=== PATIENT | male | born 1960 | race Caucasian/White ===

== ENCOUNTER 2018-05-07 11:01 | Inpatient (IN) | payer OTHER ==
[2018-05-07 13:09] VITALS: BMI 32.8
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
[2018-05-07] MEDS ORDERED: LOPERAMIDE HCL 2 MG CAPSULE PO PRN (16:48)
[2018-05-07] MEDS ORDERED: MAG HYDROX/AL HYDROX/SIMETH 30 ML UNIT-DOSE CUP PO PRN (16:48)
[2018-05-07] MEDS ORDERED: MAGNESIUM HYDROX 2400MG/30ML ORAL SUSPENSION 30 ML CUP PO PRN (16:48)
[2018-05-07] MEDS ORDERED: NICOTINE POLACRILEX 2 MG GUM BC PRN (16:48)
[2018-05-07] MEDS ORDERED: ACETAMINOPHEN 325 MG TABLET (FP) PO PRN (16:48)
[2018-05-07] MEDS ORDERED: chlordiazePOXIDE HCL 25 MG CAPSULE PO PRN (16:48)
[2018-05-07] MEDS ORDERED: IBUPROFEN 400 MG TABLET (FP) PO PRN (16:48)
[2018-05-07] MEDS ORDERED: guaiFENesin/D-METHORPHAN HB 10 ML UNIT-DOSE CUPS PO PRN (16:48)
[2018-05-07] MEDS ORDERED: P-EPHED 60MG/TRIPROLIDI 2.5MG TABLET PO PRN (16:48)
[2018-05-07] MEDS ORDERED: MENTHOL/PHENOL 1 EACH UD MM PRN (16:48)
[2018-05-07] MEDS ORDERED: MAGNESIUM CITRATE 300 ML BOTTLE PO PRN (16:48)
[2018-05-07] MEDS ORDERED: chlordiazePOXIDE HCL 25 MG CAPSULE PO ONE (17:45)
[2018-05-07] MEDS ORDERED: MELATONIN 5 MG TABLETS PO PRN (22:00)
[2018-05-07] MEDS: THIAMINE HCL 100 MG TABLET (FP) PO SCH (22:32)
[2018-05-07] MEDS: chlordiazePOXIDE HCL 25 MG CAPSULE PO SCH (22:32)
[2018-05-07] MEDS: BACITRACIN 0.9 GM PACKET TP SCH (22:32)
[2018-05-08 02:06] LABS: URINE APPEARANCE CLEAR; URINE BILIRUBIN NEGATIVE (<2.0 mg/dL); URINE COLOR AMBER; URINE GLUCOSE (UA) NEGATIVE (NEGATIVE); URINE KETONE NEGATIVE (NEGATIVE); URINE LEUK ESTERASE NEGATIVE (NEGATIVE); URINE NITRITE NEGATIVE (NEGATIVE); URINE PROTEIN NEGATIVE (NEGATIVE); URINE UROBILINOGEN 4.0 E.U/dl mg/dL (0.2-1.0)
[2018-05-08] MEDS: chlordiazePOXIDE HCL 25 MG CAPSULE PO SCH ×4 (05:40→22:09)
[2018-05-08] MEDS: PRENATAL VITAMINS W/ FOLIC ACID TABLET (FP) PO SCH (10:19)
[2018-05-08] MEDS: NICOTINE 21 MG/24 HOURS TOPICAL PATCH TD SCH (10:22)
[2018-05-08] MEDS: BACITRACIN 0.9 GM PACKET TP SCH ×2 (10:22→22:09)
--- NOTE | 2018-05-08 10:28 | EKG ---
Test Reason : Blood Pressure : / mmHG Vent. Rate : 071 BPM Atrial Rate : 071 BPM P-R Int : 164 ms QRS Dur : 096 ms QT Int : 436 ms P-R-T Axes : 032 054 044 degrees QTc Int : 473 ms NORMAL SINUS RHYTHM NORMAL ECG NO PREVIOUS ECGS AVAILABLE Confirmed by LONI KERN, CHRIS ([id number]) on 05/08/2018 10:28:33 AM Referred By: Confirmed By:CHRIS IVEY MD
[2018-05-08 11:02] LABS: HEMATOCRIT 36.1 % (35.4-49); HEMOGLOBIN 12.1 GM/dL (11.7-16.9); MCH 29.8 pg (25.7-33.7); MCHC 33.6 g/dl (32.0-35.9); MEAN CELL VOLUME 88.9 fl (80-96); MEAN PLT VOLUME 9.7 fl (7.5-11.1); PLATELET COUNT 57 K/MM3 (134-434); RBC 4.07 M/mm3 (4.00-5.60); RDW 14.8 % (11.9-15.9); WHITE BLOOD COUNT 3.3 K/mm3 (4.0-10.0)
[2018-05-08 11:05] LABS: ALBUMIN 2.9 g/dl (3.4-5.0); ANION GAP 8 MMOL/L (8-16); BLOOD UREA NITROGEN 12 mg/dL (7-18); CHLORIDE 108 mmol/L (98-107); CO2 26 mmol/L (21-32); GLUCOSE,RANDOM 113 mg/dL (74-106); POTASSIUM 4.2 mmol/L (3.5-5.1); SGOT/AST 43 U/L (15-37); SGPT/ALT 33 U/L (12-78); SODIUM 142 mmol/L (136-145)
[2018-05-08 11:07] LABS: ALK PHOS 101 U/L (45-117); BILIRUBIN,TOTAL 1.1 mg/dL (0.2-1.0); CREATININE 0.7 mg/dL (0.7-1.3); TOT PROT 6.1 g/dl (6.4-8.2)
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
--- NOTE | 2018-05-08 14:40 | PN ---
S Progress Note (SOAP) Subjective: Patient c/o "chest pain" associated with eating. Substernal without radiation. Relieved after he vomitied. No h/o cardiac disease. VSS. No SOB. [place] like food "getting stuck," Vital Signs - 24 hr 05/07/18 05/07/18 05/08/18 19:01 21:33 00:30 Temperature 98.1 F 99.3 F Pulse Rate 67 79 Respiratory 20 18 18 Rate Blood Pressure 132/72 139/68 05/08/18 05/08/18 05/08/18 03:30 06:09 06:30 Temperature 97.7 F Pulse Rate 70 Respiratory 18 18 18 Rate Blood Pressure 115/63 05/08/18 05/08/18 09:17 13:23 Temperature 97 F L 97.5 F L Pulse Rate 65 66 Respiratory 20 18 Rate Blood Pressure 118/66 100/53 VSS Objective: 05/08/18 14:38 Appears in no distress. Sitting in a chair by nurses station. Breathing is unlabored. Vital Signs - 24 hr 05/07/18 05/07/18 05/08/18 19:01 21:33 00:30 Temperature 98.1 F 99.3 F Pulse Rate 67 79 Respiratory 20 18 18 Rate Blood Pressure 132/72 139/68 05/08/18 05/08/18 05/08/18 03:30 06:09 06:30 Temperature 97.7 F Pulse Rate 70 Respiratory 18 18 18 Rate Blood Pressure 115/63 05/08/18 05/08/18 09:17 13:23 Temperature 97 F L 97.5 F L Pulse Rate 65 66 Respiratory 20 18 Rate Blood Pressure 118/66 100/53 Assessment: 05/08/18 14:39 Chest pain that is GI in origon. Given Mylanta and "I already feel normal." Reports not having eaten much in last weeks secondary to a drug/alcohol binge. Plan: Continue to monitor VS. Keep paitient seated near nursing station for another hour to monitor closely. Call MD/CHEMICAL TANK WORKER if any acute change.
[2018-05-08] MEDS: hydrOXYzine PAMOATE 50 MG CAPSULE (FP) PO PRN (17:11)
--- NOTE | 2018-05-08 21:32 | PN ---
[facility] Progress Note Note: psychiatrist donor relations officer: As per nursing report patient started on medications Ambien 5mg po prn qhs for insomnia Wellbutrin xl 150 mb poqd
[2018-05-08] MEDS: ZOLPIDEM TARTRATE 5 MG TABLET PO PRN (22:09)
[2018-05-08] MEDS: THIAMINE HCL 100 MG TABLET (FP) PO SCH (22:09)
[2018-05-09] MEDS: chlordiazePOXIDE HCL 25 MG CAPSULE PO SCH ×3 (06:44→17:11)
[2018-05-09] MEDS ORDERED: ONDANSETRON *ODT* 4 MG TABLET SL PRN (10:17)
--- NOTE | 2018-05-09 10:21 | PN ---
[facility] CIWA - CIWA Score Nausea/Vomitin Muscle Tremors: 2 Anxiety: 2 Agitation: 3 Paroxysmal Sweats: 2 Orientation: 0-Oriented Tacttile Disturbances: 0-None Auditory Disturbances: 0-None Visual Disturbances: 0-None Headache: 0-None Present CIWA-Ar Total Score: 12 [facility] Progress Note (SOAP) Subjective: pt states that he has been using heroin in addition to alcohol- urine tox pos only for benzo. Pt is on alcohol detox protocol. pt c/o abd pain, diarrhea, tremors Obj: Vital Signs - 24 hr 05/08/18 05/08/18 05/08/18 13:23 17:17 21:02 Temperature 97.5 F L 97.8 F 98.2 F Pulse Rate 66 67 75 Respiratory 18 18 18 Rate Blood Pressure 100/53 116/63 120/66 05/09/18 05/09/18 05/09/18 00:30 03:30 06:17 Temperature 97.4 F L Pulse Rate 66 Respiratory 18 18 18 Rate Blood Pressure 106/62 Ass/Plan: continue alcohol detox protocol. clonidine and zofran ordered prn
[2018-05-09] MEDS: NICOTINE 21 MG/24 HOURS TOPICAL PATCH TD SCH (12:02)
[2018-05-09] MEDS: BACITRACIN 0.9 GM PACKET TP SCH ×2 (12:02→22:11)
[2018-05-09] MEDS: cloNIDine HCL 0.1 MG TABLET PO SCH ×2 (12:03→22:11)
[2018-05-09] MEDS: PRENATAL VITAMINS W/ FOLIC ACID TABLET (FP) PO SCH (12:03)
[2018-05-09] MEDS: hydrOXYzine PAMOATE 50 MG CAPSULE (FP) PO PRN (17:14)
[2018-05-09] MEDS: ZOLPIDEM TARTRATE 5 MG TABLET PO PRN (22:11)
[2018-05-09] MEDS: THIAMINE HCL 100 MG TABLET (FP) PO SCH (22:11)
[2018-05-09] MEDS: chlordiazePOXIDE 5 MG CAPSULE PO SCH (22:11)
[2018-05-10] MEDS: chlordiazePOXIDE 5 MG CAPSULE PO SCH ×3 (05:53→17:17)
--- NOTE | 2018-05-10 09:50 | PN ---
S Progress Note (SOAP) Subjective: pt states he id fine, scheduled to go home tomorrow, but thinks he may need to leave today O: Vital Signs - 24 hr 05/09/18 05/09/18 05/09/18 11:19 18:19 22:24 Temperature 97.4 F L 97.6 F 98 F Pulse Rate 80 68 71 Respiratory 16 18 18 Rate Blood Pressure 122/70 133/73 127/65 05/10/18 05/10/18 05/10/18 00:30 03:30 06:00 Temperature 97.8 F Pulse Rate 66 Respiratory 18 18 18 Rate Blood Pressure 102/59 Laboratory Tests 05/07/18 05/08/18 05/08/18 07:00 00:45 07:00 WBC 3.3 L RBC 4.07 Hgb 12.1 Hct 36.1 MCV 88.9 MCH 29.8 MCHC 33.6 RDW 14.8 Plt Count 57 L MPV 9.7 Sodium Potassium Chloride Carbon Dioxide Anion Gap BUN Creatinine Creat Clearance w eGFR POC Glucometer Random Glucose Calcium Total Bilirubin AST ALT Alkaline Phosphatase Total Protein Albumin Urine Color Pamela Urine Appearance Clear Urine pH 6.0 Ur Specific [place] 1.020 Urine Protein Negative Urine Glucose (UA) Negative Urine Ketones Negative Urine Blood Negative Urine Nitrite Negative Urine Bilirubin Negative Urine Urobilinogen 4.0 e.u/dl Ur Leukocyte Esterase Negative RPR Titer HIV 1&2 Antibody Screen Negative HIV P24 Antigen Negative 05/08/18 05/08/18 05/09/18 07:00 07:00 06:43 WBC RBC Hgb Hct MCV MCH MCHC RDW Plt Count MPV Sodium 142 Potassium 4.2 Chloride 108 H Carbon Dioxide 26 Anion Gap 8 BUN 12 Creatinine 0.7 Creat Clearance w eGFR > 60 POC Glucometer 121 Random Glucose 113 H Calcium 8.0 L Total Bilirubin 1.1 H AST 43 H ALT 33 Alkaline Phosphatase 101 Total Protein 6.1 L Albumin 2.9 L Urine Color Urine Appearance Urine pH Ur Specific [place] Urine Protein Urine Glucose (UA) Urine Ketones Urine Blood Urine Nitrite Urine Bilirubin Urine Urobilinogen Ur Leukocyte Esterase RPR Titer Nonreactive HIV 1&2 Antibody Screen HIV P24 Antigen 05/10/18 05:37 WBC RBC Hgb Hct MCV MCH MCHC RDW Plt Count MPV Sodium Potassium Chloride Carbon Dioxide Anion Gap BUN Creatinine Creat Clearance w eGFR POC Glucometer 105 Random Glucose Calcium Total Bilirubin AST ALT Alkaline Phosphatase Total Protein Albumin Urine Color Urine Appearance Urine pH Ur Specific [place] Urine Protein Urine Glucose (UA) Urine Ketones Urine Blood Urine Nitrite Urine Bilirubin Urine Urobilinogen Ur Leukocyte Esterase RPR Titer HIV 1&2 Antibody Screen HIV P24 Antigen Active Medications Acetaminophen (Tylenol -) 650 mg PO Q4H PRN PRN Reason: FEVER Al Hydroxide/Mg Hydroxide (Mylanta Oral Suspension -) 30 ml PO Q6H PRN PRN Reason: DYSPEPSIA Last Admin: 05/08/18 14:20 Dose: 30 ml Bacitracin (Bacitracin -) 0.9 gm TP BID [facility] Last Admin: 05/09/18 22:11 Dose: 0.9 gm Bupropion HCl (Wellbutrin Xl -) 150 mg PO DAILY [facility] Last Admin: 05/09/18 12:03 Dose: Not Given Chlordiazepoxide HCl (Librium -) 15 mg PO [id number] [facility] Stop: 05/10/18 17:01 Last Admin: 05/10/18 05:53 Dose: Not Given Chlordiazepoxide HCl (Librium -) 25 mg PO Q4H PRN PRN Reason: WITHDRAWAL(CONT SUBST) Stop: 05/10/18 16:47 Chlordiazepoxide HCl (Librium -) 10 mg PO [id number] [facility] Stop: 05/11/18 17:01 Clonidine (Catapres -) 0.1 mg PO BID [facility] Last Admin: 05/09/18 22:11 Dose: 0.1 mg Eucalyptus/Menthol/Phenol/Sorbitol (Cepastat Lozenge -) 1 each MM Q4H PRN PRN Reason: SORE THROAT Guaifenesin (Robitussin Dm -) 10 ml PO Q6H PRN PRN Reason: COUGH Hydroxyzine Pamoate (Vistaril -) 50 mg PO Q4H PRN PRN Reason: AGITATION Last Admin: 05/09/18 17:14 Dose: 50 mg Ibuprofen (Motrin -) 400 mg PO Q6H PRN PRN Reason: PAIN LEVEL 4-6 Loperamide HCl (Imodium -) 4 mg PO Q6H PRN PRN Reason: DIARRHEA Magnesium Citrate (Citroma -) 300 ml PO Q48H PRN PRN Reason: CONSTIPATION Magnesium Hydroxide (Milk Of Magnesia -) 30 ml PO DAILY PRN PRN Reason: CONSTIPATION Melatonin (Melatonin) 5 mg PO HS PRN PRN Reason: INSOMNIA Last Admin: 05/07/18 22:33 Dose: 5 mg Nicotine (Nicoderm Patch -) 21 mg TD DAILY [facility] Last Admin: 05/09/18 12:02 Dose: Not Given Nicotine Polacrilex (Nicorette Gum -) 2 mg BC Q2H PRN PRN Reason: NICOTINE REPLACEMENT RX Last Admin: 05/09/18 17:16 Dose: 2 mg Ondansetron HCl (Zofran Odt -) 4 mg SL Q6H PRN PRN Reason: NAUSEA AND/OR VOMITING Multivit/Folic Acid/Iron ( Vitamins ([facility]) -) 1 tab PO DAILY [facility] Last Admin: 05/09/18 12:03 Dose: Not Given Pseudoephedrine/Triprolidine (Actifed -) 1 combo PO TID PRN PRN Reason: NASAL CONGESTION Thiamine HCl (Vitamin B1 -) 100 mg PO HS [facility] Last Admin: 05/09/18 22:11 Dose: 100 mg Zolpidem Tartrate (Ambien -) 5 mg PO HS PRN PRN Reason: INSOMNIA Last Admin: 05/09/18 22:11 Dose: 5 mg A/p: continue detox protocol- pt doing well.
[2018-05-10] MEDS: cloNIDine HCL 0.1 MG TABLET PO SCH ×2 (10:33→22:12)
[2018-05-10] MEDS: PRENATAL VITAMINS W/ FOLIC ACID TABLET (FP) PO SCH (10:33)
[2018-05-10] MEDS: BACITRACIN 0.9 GM PACKET TP SCH ×2 (10:33→22:12)
[2018-05-10] MEDS: NICOTINE 21 MG/24 HOURS TOPICAL PATCH TD SCH (10:33)
[2018-05-10] MEDS: THIAMINE HCL 100 MG TABLET (FP) PO SCH (22:12)
[2018-05-10] MEDS: chlordiazePOXIDE HCL 10 MG CAPSULE PO SCH (22:34)
[2018-05-10] MEDS: hydrOXYzine PAMOATE 50 MG CAPSULE (FP) PO PRN (23:20)
--- NOTE | 2018-05-10 23:23 | PN ---
[facility] Progress Note Note: Psychiatrist vibration technician : As per mursing report patient missed today's Wellbutrin in am and now asking for his daily Wellbutrin order Patient was informed Wellbutrin at bed time januarysrupt his sleep steveniene, patient agrees to take Wellbutrin in am., taking Vistaril 50mg po prn instead.
[2018-05-11 06:04] VITALS: BP 99/63; PULSE 68; TEMP 97.4
[2018-05-11] MEDS: chlordiazePOXIDE HCL 10 MG CAPSULE PO SCH (06:14)
[2018-05-11] MEDS ORDERED: buPROPion HCL 75 MG TABLET PO ONE (07:00)
--- NOTE | 2018-05-11 13:38 | PN ---
[facility] Progress Note Note: PT DISCHARGED EARLIER THIS MORNING. DETOX COMPLETED.
--- NOTE | 2018-05-11 13:40 | DS ---
[facility] Detox Discharge Summary Admission Date: 05/07/18 Discharge Date: 05/11/18 - History Present History: Alcohol Dependence Additional Comments: DETOX COMPLETED Pertinent Past History: PLEASE SEE DX BELOW - Physical Exam Results Vital Signs: Vital Signs Temperature 97.4 F L 05/11/18 06:03 Pulse Rate 68 05/11/18 06:03 Respiratory Rate 05/11/18 06:03 Blood Pressure 99/63 05/11/18 06:03 O2 Sat by Pulse Oximetry (%) Pertinent Admission Physical Exam Findings: WITHDRAWAL SX - Treatment Hospital Course: Detox Protocol Followed, Detoxed Safely, Responded well, Discharged Condition Good - Medication Discharge Medications: Ambulatory Orders Bupropion HCl [Wellbutrin Xl -] 150 mg PO DAILY 05/07/18 hydrOXYzine PAMOATE [Vistaril -] 50 mg PO HS 05/07/18 - Diagnosis (1) Alcohol dependence with uncomplicated withdrawal Status: Acute (2) Nicotine dependence, uncomplicated Status: Chronic Qualifiers: Nicotine product type: cigarettes Qualified Code(s): F17.210 - Nicotine dependence, cigarettes, uncomplicated - AMA Did Patient Leave Against Medical Advice: No
== END 2018-05-11 06:20 | disposition home or self-care (01) | DRG 773 ==
LOC: YASAS 11:01 → Y3N 17:30
PROC: HZ2ZZZZ Detoxification Services for Substance Abuse Treatment (ICD-10-PCS; principal; 2018-05-07)
DX: F10.230 Alcohol dependence with withdrawal, uncomplicated (principal); F11.20 Opioid dependence, uncomplicated; F17.210 Nicotine dependence, cigarettes, uncomplicated; F19.24 Other psychoactive substance dependence with psychoactive substance-induced mood disorder; F43.10 Post-traumatic stress disorder, unspecified; F33.9 Major depressive disorder, recurrent, unspecified; G47.00 Insomnia, unspecified; I10 Essential (primary) hypertension; E11.9 Type 2 diabetes mellitus without complications; Z87.09 Personal history of other diseases of the respiratory system; Z86.19 Personal history of other infectious and parasitic diseases; B18.2 Chronic viral hepatitis C; Z91.5 Personal history of self-harm
CPT/HCPCS: 36415; 80053; 81003; 82962; 85027; 86593; 87389; 93005; 93010; J0735